=== PATIENT | female | born 1965 | race Caucasian/White ===

== ENCOUNTER 2022-12-20 01:17 | Day surgery (SDC) | payer OTHER, SELFPAY ==
[2022-12-08 13:07] VITALS: BMI 31.0
--- NOTE | 2022-12-19 14:09 | PM.HPGS ---
History of Present Illness History of Present Illness Consent: Risks, benefits, and alternatives have been discussed and questions answered. Patient agrees to proceed with procedure. Chief complaint: neoplasm screening Narrative: Tamika Oden is a 57 year old female who was referred for colon cancer screening. Review of Systems Review of Systems: All systems reviewed & are unremarkable except as noted in HPI and below PMFSH Past Medical History Medical History Acute medial meniscus tear of left knee Arthritis of knee, left Aguilera's cyst of knee Depression Hypertension Hypothyroidism Seasonal allergies Sleep apnea Vertigo Vision abnormalities Family History Family History Other Diabetes mellitus Family history of arthritis Heart disease Hypertension Malignant neoplasm Social History Social History Smoking status: Never smoker Alcohol intake: never Substance use: never Substance use type: does not use Lack of Transportation: No Lack of Food: Never True Current Housing: I Have Housing Concerned About Future Housing: No Difficulty Paying Gas/Electric Bills: No Difficulty Paying for Meds: No Currently Unemployed: No Education: Master's Degree or Higher Difficulty w/ Childcare or Family Care: No Living arrangements: with family Occupation/Education: retired Gender identity (if verbalized by the patient): Female Spiritual care concerns: No Meds Home Medications and Allergies Home Medications Medication Instructions Recorded Confirmed Type cholecalciferol (vitamin D3) 25 25 mcg PO DAILY 12/24/19 12/08/22 History mcg (1,000 unit) chewable tablet (Vitamin D3) hydrochlorothiazide 25 mg tablet 25 mg PO DAILY 09/06/22 12/08/22 History desvenlafaxine succinate 50 mg 50 mg PO DAILY #90 tabs 11/27/22 12/08/22 Rx tablet,extended release 24 hr (Pristiq) cyclobenzaprine 5 mg tablet 5 - 10 mg PO QHS PRN muscle spasm 11/30/22 12/08/22 Rx #14 tabs levothyroxine 100 mcg tablet 100 mcg PO DAILY #30 tabs 12/01/22 12/20/22 Rx (Synthroid) lisinopril 10 mg tablet See Rx Instructions .Route 12/05/22 12/08/22 Rx .COMPLEX #90 tabs Allergies Allergy/AdvReac Type Severity Reaction Status Date / Time No Known Allergies Allergy Verified 12/20/22 07:17 Exam Const: General: alert Orientation/consciousness: patient oriented x3 Resp: Auscultation: clear to auscultation bilaterally Cardio: Rhythm: regular rhythm GI: GI Palp: Yes Soft to palpation and No Tenderness to palpation present (GI) Neuro: General: patient oriented x3 Assessment and Plan Assessment and plan (1) Screening for colon cancer: Code(s): Z12.11 - Encounter for screening for malignant neoplasm of colon Status: Acute Assessment and Plan: Colonoscopy with possible biopsy or polypectomy or cautery or injection of substances.
[2022-12-20 07:18] VITALS: BP 128/86; PULSE 77; RESP 16; TEMP 36.3; O2SAT 100
[2022-12-20] MEDS: LACTATED RINGERS 1,000 ML 150 ML IV CONT (07:26)
--- NOTE | 2022-12-20 08:04 | WPDANESEPPF ---
Anes - Initial Pre Proc Eval Procedure: Operation Date: 12/20/22 08:30 Proposed Procedures p Screening Colonoscopy - Ronen Reed MD Date/Time: 12/20/22 08:04 Surgeon: Ronen Reed MD Pre Op Diagnosis: neoplasm screening Patient Data Age: 57 Gender: F Height: 1.63 m Weight: 80.3 kg Last Vital Signs Temp 97.4 F L 12/20/22 07:18 Pulse 77 12/20/22 07:18 Resp 16 12/20/22 07:18 BP 128/86 12/20/22 07:18 Pulse Ox 100 12/20/22 07:18 O2 Del Method Room Air 12/20/22 07:18 Allergies Allergy/AdvReac Type Severity Reaction Status Date / Time No Known Allergies Allergy Verified 12/20/22 07:17 Home Medications Medication Instructions Recorded Confirmed Type cholecalciferol (vitamin D3) 25 25 mcg PO DAILY 12/24/19 12/08/22 History mcg (1,000 unit) chewable tablet (Vitamin D3) hydrochlorothiazide 25 mg tablet 25 mg PO DAILY 09/06/22 12/08/22 History desvenlafaxine succinate 50 mg 50 mg PO DAILY #90 tabs 11/27/22 12/08/22 Rx tablet,extended release 24 hr (Pristiq) cyclobenzaprine 5 mg tablet 5 - 10 mg PO QHS PRN muscle spasm 11/30/22 12/08/22 Rx #14 tabs levothyroxine 100 mcg tablet 100 mcg PO DAILY #30 tabs 12/01/22 12/20/22 Rx (Synthroid) lisinopril 10 mg tablet See Rx Instructions .Route 12/05/22 12/08/22 Rx .COMPLEX #90 tabs Patient hx anesthesia problems: none Family hx anesthesia problems: none Results Review: All pre-operative results and documents have been reviewed as part of the pre-operative evaluation. [facility] Past Medical History Medical History Acute medial meniscus tear of left knee Arthritis of knee, left Aguilera's cyst of knee Depression Hypertension Hypothyroidism Seasonal allergies Sleep apnea Vertigo Vision abnormalities Family History Family History Other Diabetes mellitus Family history of arthritis Heart disease Hypertension Malignant neoplasm Social History Social History Smoking status: Never smoker Alcohol intake: never Substance use: never Substance use type: does not use Lack of Transportation: No Lack of Food: Never True Current Housing: I Have Housing Concerned About Future Housing: No Difficulty Paying Gas/Electric Bills: No Difficulty Paying for Meds: No Currently Unemployed: No Education: Master's Degree or Higher Difficulty w/ Childcare or Family Care: No Living arrangements: with family Occupation/Education: retired Gender identity (if verbalized by the patient): Female Spiritual care concerns: No Anes - Eval Final PreProcedure Day of Procedure 12/20/22 08:04 Patient weight: obese Heart: regular rate and rhythm Lungs: clear to auscultation Airway: Mallampati scale class II Neurological: alert and oriented Last oral intake: >/= 8 hours ASA classification: III Emergent: no Anesthetic plan: proceed Anesthesia type and monitoring: general GIVS and standard monitoring Results Review: All pre-operative results and documents have been reviewed as part of the pre-operative evaluation. Informed Consent: The patient's anesthetic plan and its attendant risks and benefits were discussed with the patient/family/POA. Questions were solicited and answers provided to the satisfaction of the patient/family/POA.
[2022-12-20 08:48] VITALS: BP 105/72; PULSE 66; RESP 20; O2SAT 99
[2022-12-20 08:58] VITALS: BP 113/77; PULSE 68; RESP 17; O2SAT 100
[2022-12-20 09:08] VITALS: BP 112/86; PULSE 65; RESP 21; O2SAT 97
== END 2022-12-20 09:13 | disposition home or self-care (01) ==
PROVIDERS: PCP Family Medicine; Visit Provider Internal Medicine Gastroenterology
PROC: 0DJD8ZZ Inspection of Lower Intestinal Tract, Via Natural or Artificial Opening Endoscopic (ICD-10-PCS; CPT 45378; principal; 2022-12-20 08:30)
DX: Z12.11 Encounter for screening for malignant neoplasm of colon (principal); K62.1 Rectal polyp; K64.8 Other hemorrhoids; K57.30 Diverticulosis of large intestine without perforation or abscess without bleeding; I10 Essential (primary) hypertension; E03.9 Hypothyroidism, unspecified; G47.30 Sleep apnea, unspecified; F32.A Depression, unspecified; E66.9 Obesity, unspecified; Z68.30 Body mass index [BMI] 30.0-30.9, adult
CPT/HCPCS: 45380; 88305; J2704; J7120

== ENCOUNTER 2023-08-31 12:30 | Outpatient (RCR) | payer OTHER, SELFPAY ==
--- NOTE | 2023-07-02 10:19 | PTOPEVAL1 ---
Assessment and note entered by Ne Brandon, PT Evaluation Information Assessment Status Evaluation Diagnosis dizziness and giddiness, cervicalgia, abnormal posture Onset Mar 2023 Subjective Information Mar 2023 started one day got up and walked into the kitchen and was completely dizzy, had to go down to the ground . Since then has had 3 more episodes. Just lasts minutes, will sit down and close eyes and will go away. No trend with position, one day was in [place], once standing, once sitting. States all of a sudden will just start spinning, had 3-4 small episodes of spinning this past weekend. Reported Pain Level Pain Score 0: Self Report Assessment PT Clinical Summary Pt presents with c/o dizziness that started in March of 2023 with sporadic flare ups of spinning and dizziness that appear random in presentation. Pt demo's decreased balance with eyes closed activities and looses balance to the left along with fullness L>R and tinnitus bilat all suggestive of inner ear pathology. However today inner ear canalith testing was negative for signs and symptoms of BPPV. Pt does also have what appears to be an underlying cervical pathology as has decreased thoracic spine mobility, increased tone cervical muscles. Pt will benefit from physical therapy to address deficits and improve symptoms as well as to r/o pathologies prior to sending to next level of care. Plan of Care Interventions Electrical Stimulation,Hot Pack/Cold Pack,Manual Therapy,Mechanical Traction,Neuro Re-education, Therapeutic Activities,Therapeutic Exercise, Ultrasound PT Services Indicated Yes Treatment Frequency and 1-2x weekly x 10 visits Duration These treatments will address the objective and functional deficits as defined above. The patient will be advanced safely and appropriately in order for the patient to progress towards his/her prior level of function. Additional exercises will be introduced and as well as a comprehensive home exercise program upon discharge, if needed, ?to ensure carryover of functional gains achieved in the clinic. This treatment plan has been reviewed and agreement upon by the patient.
--- NOTE | 2023-07-02 10:20 | OPREHPOC ---
Outpatient Therapy Plan of Care This is a Multidisciplinary Plan of Care that may contain components documented by all disciplines (PT, OT, and ST.) PT Problem 1 PT Problem #1 Knowledge Deficit PT Goal 1 Goal Pt will be independent in HEP Pt will verbalize understanding of diagnosis and prognosis Target Visit 8 PT Problem 2 PT Problem #2 Impaired Range of Motion PT Goal 1 Goal Pt will demo thoracic ROM WNL to improve support of cervical spine Target Visit 8 PT Problem 3 PT Problem #3 Impaired Balance PT Goal 1 Goal Pt will demo tandem stance on firm surface with eyes closed 15 seconds R/L forward Target Visit 10 PT Problem 4 PT Problem #4 Impaired Flexibility PT Goal 1 Goal Pt will demo normalized tone in cervical paraspinals to decrease strain/stress on facet joints Target Visit 10
--- NOTE | 2023-07-06 15:30 | PCPTNOTE ---
Department called and cancelled pt's appointment 07/05/23 due to staffing shortage. Pt POC will resume with next appointment.
--- NOTE | 2023-07-30 14:19 | PCPTNOTE ---
Patient called & cancelled scheduled appointment this date due to illness.
--- NOTE | 2023-08-08 16:28 | PTOPPROG ---
Assessment and note entered by Ne Brandon, PT Assessment Status Progress Report Diagnosis dizziness and giddiness Cervicalgia pain in thoracic spine abnormal posture Onset Mar 2023 Subjective Information Pt states has started another anti-biotic for sinus infection. Otherwise no changes in medical history. Pt reports has not had any dizziness/spinning for 2-3 weeks. Can tell her neck is loosening up, she can turn her head in the car. Dizziness symptoms: some grogginess but is 90% improved. Cervical symptoms: feels 60 % improved on the neck . Still has a pain on the right side of the neck but also has a history of bulging discs. The pain down the arm is less often. Assessment PT Clinical Summary Pt presented initially for dizziness giddiness that was found to be cervicogenic in nature. She reports feeling 90% improved, no longer has dizziness or spinning but reports an overall groggy sensation. Cervical paraspinal tone is improved as well as upper traps, and thoracic spine mobility is improved. She reports 60% improved in her cervical spine overall. She does continue to demo thoracic alignment and cervical alignment deficits with discomfort likely related to lower kinematic chain such as leg length discrepancy. Pt will benefit from continued therapy in order to continue to improve cervical and thoracic spine pain and meet patient goals. Plan of Care Interventions Electrical Stimulation,Hot Pack/Cold Pack,Manual Therapy,Mechanical Traction,Neuro Re-education, Therapeutic Activities,Therapeutic Exercise, Ultrasound PT Services Indicated Yes Treatment Frequency and 1-2x weekly x 10 visits Duration These treatments will address the objective and functional deficits as defined above. The patient will be advanced safely and appropriately in order for the patient to progress towards his/her prior level of function. Additional exercises will be introduced and as well as a comprehensive home exercise program upon discharge, if needed, ?to ensure carryover of functional gains achieved in the clinic. This treatment plan has been reviewed and agreement upon by the patient.
--- NOTE | 2023-08-31 13:25 | PTOPDC ---
Assessment and note entered by Ne Brandon, PT Assessment Status Discharge Diagnosis dizziness and giddiness Onset Mar 2023 Subjective Information Pt reports she has not had dizziness since her last session Also noted she has not had pain in her neck or arm since last session. Was driving this morning and noted she was able to turn her head to the right without pain. Pt states she can't remember the last time she was able to turn her head to the right without pain. Reports 100% improvement in both aspects Reported Pain Level Pain Score 0: Self Report Assessment PT Clinical Summary Pt returns after 3 weeks off from therapy. She reports today she hasn't had dizziness since last therapy visit, and notes also no neck pain since last visit. States also she is now able to turn her head to the right without pain which she has not been able to do since I can't remember when . Pt reports feeling 100% improved in dizziness, cont to demo mild static balance deficits with eyes closed and small base of support but also has a hx of left knee issues. She has met 3/5 of her therapy goals, with the last 2 being close to being met. Pt is thus being discharged from plan of care for completion of program. Plan of Care PT Services Indicated No
== END 2023-09-03 13:03 | disposition home or self-care (01) ==
LOC: ANHHIPT 12:30
PROVIDERS: PCP Family Medicine; Visit Provider Physician Assistant Medical
DX: R42 Dizziness and giddiness (principal)
CPT/HCPCS: 97014; 97110; 97140; 97161; 97750; G0283

== ENCOUNTER 2025-02-18 11:43 | Outpatient (CLI) | payer OTHER, SELFPAY ==
--- NOTE | ~2025-02-18 | US_ITS ---
Clinical history:Nontoxic goiter EXAM:Ultrasound soft tissue head and neck TECHNIQUE:Multiple static grayscale images and color Doppler images were obtained Comparisons:Ultrasound thyroid 11/04/2014 FINDINGS: Right thyroid lobe is heterogeneous and small and measures 2.8 x 0.9 x 1.0 cm. Left thyroid lobe is heterogeneous and small and measures 3.2 x 1.0 x 0.8 cm. Isthmus is heterogeneous and small and measures 0.2 cm. No discrete thyroid nodule identified. No sonographic abnormality identified in the area of palpable concern in the left suprasternal region. IMPRESSION: 1. No sonographic abnormality identified in the area of palpable concern in the left suprasternal region. A chest CT with contrast is recommended. 2. Thyroid gland is small and heterogeneous. No discrete thyroid nodule identified. Reviewed, dictated and finalized at location Q. IMPRESSION: 1. No sonographic abnormality identified in the area of palpable concern in the left suprasternal region. A chest CT with contrast is recommended. 2. Thyroid gland is small and heterogeneous. No discrete thyroid nodule identif ied.
== END 2025-02-18 11:44 | disposition home or self-care (01) ==
LOC: MICIMG 11:43
PROVIDERS: PCP Physician Assistant Medical; Visit Provider Physician Assistant Medical
DX: E04.9 Nontoxic goiter, unspecified (principal); R22.1 Localized swelling, mass and lump, neck
CPT/HCPCS: 76536

== ENCOUNTER 2025-03-10 10:20 | Outpatient (CLI) | payer OTHER, SELFPAY ==
--- NOTE | ~2025-03-10 | CT_ITS ---
Exam: CT chest with contrast Clinical History: [Upper left-sided chest wall mass x3 months ] Comparison: [ None available] Technique: Multiple axial CT images of the chest with IV contrast. Sagittal and coronal reformatted images were obtained. FINDINGS: Lungs and pleura: [ Tracheobronchial tree is patent. No pneumothorax. No pleural effusion. No free air under the diaphragm.] There is a 4 mm subpleural nodule in the left lower lobe. There are a few small reticular subpleural opacities in the lower lungs likely atelectasis or scarring. Mediastinum and pulmonary blane: [ No mass or adenopathy.] Axillary/intramammary and supraclavicular: [ No mass or adenopathy.] Heart and great vessels: [ Normal heart size.[ [ No pericardial effusion.] [ No aneurysm.] Chest Wall: [ Unremarkable.] Upper Abdomen: There are several too small to characterize low-attenuation lesions in the liver and spleen. There are two low-density lesions in the liver, largest measures 2.0 cm in the right lobe of the liver. Osseous structures: [ No acute fracture or destructive lesion.] [ Multilevel degenerative change in the visualized spine.] Additional findings: IMPRESSION: 1. There is a 4 mm subpleural nodule in the left lower lobe. Follow-up chest CT in 6 months recommended. 2. There are several too small to characterize low-attenuation lesions in the liver and spleen. There are two low-density lesions in the liver, largest measures 2.0 cm in the right lobe of the liver. The findings are indeterminate. A liver mass MRI or PET/CT is recommended. 3. No CT evidence for a left-sided chest wall mass. If the findings localize to the left breast, a left breast mammogram and a left breast ultrasound is recommended. Reviewed, dictated and finalized at location Q. IMPRESSION: 1. There is a 4 mm subpleural nodule in the left lower lobe. Follow-up chest CT in 6 months recommended. 2. There are several too small to characterize low-attenuation lesions in the l iver and spleen. There are two low-density lesions in the liver, largest measur es 2.0 cm in the right lobe of the liver. The findings are indeterminate. A lucero er mass MRI or PET/CT is recommended. 3. No CT evidence for a left-sided chest wall mass. If the findings localize to the left breast, a left breast mammogram and a left breast ultrasound is recom mended.
[2025-03-10 10:36] LABS: Estimated Glomerular Filt Rate 56
== END 2025-03-10 10:21 | disposition home or self-care (01) ==
LOC: MICIMG 10:21
PROVIDERS: PCP Physician Assistant Medical; Visit Provider Physician Assistant Medical
DX: R91.1 Solitary pulmonary nodule (principal); K76.9 Liver disease, unspecified; D73.89 Other diseases of spleen
CPT/HCPCS: 71260; Q9967

== ENCOUNTER 2025-04-14 11:49 | Outpatient (CLI) | payer OTHER, SELFPAY ==
--- NOTE | ~2025-04-14 | MR_ITS ---
EXAMINATION: MRI upper abdomen with and without contrast DATE: 04/15/2025. INDICATION: Follow-up of CT findings on CT chest, consisting of several small low-density lesions of the liver and spleen including 2 cm lesion of right lobe of the liver mentioned. This patient reports no prior history of malignancy. TECHNIQUE: Axial, coronal images following the liver mass protocol including postcontrast after injection of 14 mL ProHance IV were obtained. COMPARISON: CT chest dated 03/10/2025. FINDINGS: The liver measures craniocaudal span of 17 cm. Spleen measures 9 cm in length. Numerous well-circumscribed thin-walled cysts of the liver are noted measuring up to 2 cm in size in the right lobe of the liver. No abnormal enhancement is noted on postcontrast study. Portal vein and hepatic veins are patent. No focal lesions of the spleen. Pancreas and kidneys do not show acute findings. Couple of small subcentimeter cysts of the right kidney are noted. No retroperitoneal adenopathy or ascites. IMPRESSION: 1. Borderline enlarged liver. Normal size spleen. 2. Numerous well-circumscribed cystic lesions of the liver measuring up to 2 cm in size. No solid masses are abnormal enhancement are seen. No focal lesions of the spleen. 3. Fecal impaction of the colon. No lymphadenopathy or ascites. Reviewed, dictated and finalized at location T. [facility] IMPRESSION: 1. Borderline enlarged liver. Normal size spleen. 2. Numerous well-circumscribed cystic lesions of the liver measuring up to 2 cm in size. No solid masses are abnormal enhancement are seen. No focal lesions o f the spleen. 3. Fecal impaction of the colon. No lymphadenopathy or ascites.
== END 2025-04-14 11:50 | disposition home or self-care (01) ==
LOC: MICIMG 11:49
PROVIDERS: PCP Physician Assistant Medical; Visit Provider Physician Assistant Medical
DX: R16.0 Hepatomegaly, not elsewhere classified (principal)
CPT/HCPCS: 74183; A9577